=== PATIENT | female | born 1990 | race Asian ===

== ENCOUNTER 2022-10-14 16:45 | Outpatient (CLI) | payer BC ==
[2022-10-14 17:11] LABS: BASOPHILS % (AUTO) 0.4 %; EOSINOPHILS # (AUTO) 0.2 10^3/uL (0.0-0.7); EOSINOPHILS % (AUTO) 1.8 %; HCT - HEMATOCRIT 36.3 % (37.0-47.0); HGB - HEMOGLOBIN 12.2 g/dL (12.0-16.0); LYMPHOCYTES # (AUTO) 1.7 10^3/uL (1.5-3.5); LYMPHOCYTES % (AUTO) 15.4 %; MEAN CORPUSCULAR HEMOGLOBIN 28.1 pg (27.0-31.0); MEAN CORPUSCULAR HGB CONC 33.6 g/dL (32.0-36.0); MEAN CORPUSCULAR VOLUME 83.6 fL (81.0-99.0); MEAN PLATELET VOLUME 8.3 fL (7.9-10.8); MONOCYTES # (AUTO) 0.7 10^3/uL (0.0-1.0); MONOCYTES % (AUTO) 6.1 %; NEUTROPHILS # (AUTO) 8.6 10^3/uL (1.5-6.6); NEUTROPHILS % (AUTO) 75.9 %; PLT - PLATELET COUNT 346 10^3/uL (130-450); RED BLOOD COUNT 4.34 10^6/uL (4.20-5.40); RED CELL DISTRIBUTION WIDTH 13.4 % (12.0-15.0); WHITE BLOOD COUNT 11.3 x10^3/uL (4.8-10.8)
[2022-10-14 17:42] LABS: BILIRUBIN,URINE NEGATIVE (NEGATIVE); GLUCOSE, URINE (UA) NEGATIVE (NEGATIVE); KETONES,URINE (UA) NEGATIVE (NEGATIVE); LEUKOCYTE ESTERASE, URINE NEGATIVE (NEGATIVE); NITRITE,URINE NEGATIVE (NEGATIVE); OCCULT BLOOD,URINE NEGATIVE (NEGATIVE); PROTEIN,URINE NEGATIVE (NEGATIVE); UROBILINOGEN,URINE 0.2 (NORMAL) E.U./dL (NORMAL)
[2022-10-14 18:00] LABS: BACTERIA,URINE Rare /HPF (None Seen); CLARITY,URINE CLEAR (CLEAR); RBC,URINE 0-5 /HPF (0-5); SQUAMOUS EPITHELIAL CELL,UR RARE Squamous (<= Few); WBC,URINE 0-3 /HPF (0-5)
[2022-10-16 04:09] LABS: HBsAG SCREEN Negative (Negative); HCV AB Non Reactive (Non Reactive); HIV SCREEN 4TH GENERATION Non Reactive (Non Reactive)
[2022-10-16 07:10] LABS: RPR Non Reactive (Non Reactive); VARICELLA-ZOSTER AB IGG <135 index (Immune >165)
== END 2022-10-14 16:46 | disposition home or self-care (01) ==
LOC: LAB 16:45
PROVIDERS: ATTEND Nurse Practitioner
DX: Z34.90 Encounter for supervision of normal pregnancy, unspecified, unspecified trimester (principal)
CPT/HCPCS: 36415; 81001; 85025; 86592; 86762; 86787; 86803; 86850; 86900; 86901; 87086; 87340; 87389

== ENCOUNTER 2022-10-15 08:00 | Outpatient (CLI) | payer BC ==
[2022-10-15 20:03] LABS: CHLAMYDIA TRACHOMATIS DNA NEGATIVE (NEGATIVE); NEISSERIA GONORRHOEAE DNA NEGATIVE (NEGATIVE); TRICHOMONAS VAGINALIS DNA NEGATIVE (NEGATIVE)
== END 2022-10-15 23:59 | disposition home or self-care (01) ==
LOC: LAB.WC 08:00
PROVIDERS: ATTEND Obstetrics & Gynecology
DX: Z11.3 Encounter for screening for infections with a predominantly sexual mode of transmission (principal)
CPT/HCPCS: 87491; 87591; 87661

== ENCOUNTER 2022-10-15 22:19 | Outpatient (CLI) | payer BC ==
--- NOTE | 2022-10-16 12:26 | Ultrasound Report ---
PROCEDURE: OB First Trimester w/TV INDICATIONS: + PREG TEST OUTSIDE/PRIOR DATING DATA: Last menstrual period (LMP): 07/28/2022. LMP-based estimated date of delivery (DUGLAS): 05/04/2023. First dating scan (date and location): 10/15/2022. Estimated date of delivery (DUGLAS) from first dating scan: 04/30/2023. The below data below was generated using the working DUGLAS of 04/30/2023 TECHNIQUE: Real-time scanning was performed of the fetus and maternal pelvic organs, with image documentation. Endovaginal scanning was also performed to better visualize the fetus and maternal ovaries. COMPARISON: None FINDINGS: Embryo: Emory-rump length 5.15 cm corresponds with a 11 week 6 day gestation. Small subchorionic ble ed measures 1.2 x 1.4 x 1.7 cm Heart rate: 157 bpm Measurement variability in dating: +/- 4 weeks by LMP, +/- 7 days by mean sac diameter (use before 6 weeks gestation if crown-rump length not able to be measured), +/- 5 days by crown-rump length (6-12 weeks gestation). Maternal organs: Ovaries not identified due to overlying bowel gas and body habitus. IMPRESSION: Single live intrauterine consistent with a 11 week 6 day gestation. Small subchorionic blee d measures 1.4 x 1.7 cm Reviewed by: Elver Colunga MD on 10/16/2022 11:24 AM NOHEMY Approved by: Elver Colunga MD on 10/16/2022 11:24 AM NOHEMY Station ID: [id number]
== END 2022-10-15 22:20 | disposition home or self-care (01) ==
LOC: DI 22:19
PROVIDERS: ATTEND Nurse Practitioner
DX: O20.8 Other hemorrhage in early pregnancy (principal); Z3A.11 11 weeks gestation of pregnancy; Z11.3 Encounter for screening for infections with a predominantly sexual mode of transmission
CPT/HCPCS: 87491; 87591; 87661

== ENCOUNTER 2022-11-18 16:07 | Outpatient (CLI) | payer BC ==
[2022-11-20 20:07] LABS: AFP MOM 0.76 (.); AFP VALUE 32.8 ng/mL (.); GEST. AGE ON COLLECTION DATE 16.1 weeks (.); GESTAT. AGE METHOD EDD (.); INSULIN DEP DIABETES No (.); MATERNAL AGE AT EDD 35.2 yr (.); MULTIPLE GESTATION No (.); OPEN SPINA BIFIDA RISK 1 IN 10000 (.); RACE Other (.); RESULTS Report (.); TEST RESULTS *Screen Negative* (.); WEIGHT 111 lbs (.)
== END 2022-11-18 16:08 | disposition home or self-care (01) ==
LOC: LAB 16:07
PROVIDERS: ATTEND Obstetrics & Gynecology
DX: O09.511 Supervision of elderly primigravida, first trimester (principal)
CPT/HCPCS: 36415; 82105

== ENCOUNTER 2023-01-30 09:53 | Outpatient (CLI) | payer BC ==
[2023-01-30 18:50] LABS: HCT - HEMATOCRIT 34.2 % (37.0-47.0); HGB - HEMOGLOBIN 11.2 g/dL (12.0-16.0); MEAN CORPUSCULAR HEMOGLOBIN 28.4 pg (27.0-31.0); MEAN CORPUSCULAR HGB CONC 32.7 g/dL (32.0-36.0); MEAN CORPUSCULAR VOLUME 86.8 fL (81.0-99.0); MEAN PLATELET VOLUME 8.9 fL (7.9-10.8); RED BLOOD COUNT 3.94 10^6/uL (4.20-5.40); WHITE BLOOD COUNT 11.5 x10^3/uL (4.8-10.8)
== END 2023-01-30 09:54 | disposition home or self-care (01) ==
LOC: LAB.N 09:53
PROVIDERS: ATTEND Nurse Practitioner
DX: O09.511 Supervision of elderly primigravida, first trimester (principal)
CPT/HCPCS: 36415; 82950; 85027

== ENCOUNTER 2023-03-26 14:59 | Outpatient (CLI) | payer BC ==
--- NOTE | 2023-03-26 16:56 | Ultrasound Report ---
PROCEDURE: OB Biophysical Profile INDICATIONS: GESTATIOANL DIABETES OUTSIDE/PRIOR DATING DATA: Last menstrual period (LMP): 07/28/2022. LMP-based estimated date of delivery (DUGLAS): 05/04/2023. First dating scan (date and location): 10/15/2022. Estimated date of delivery (DUGLAS) from first dating scan: 04/30/2023. The below data below was generated using the clinical DUGLAS of 05/04/2023 TECHNIQUE: Real-time scanning was performed of the fetus, with image documentation and biometric jef surements. Biophysical profile was also obtained. COMPARISON: OB ultrasound 12/19/2022 FINDINGS: General: A single living intrauterine gestation is present. Presentation: Vertex Placenta: Placental position is anterior, without previa. Amniotic fluid index: 12.9 cm, within normal limits for gestational age. heart rate: 143 beats per minute. Maternal cervical canal: 3.7 cm long; normal length is 2.5 cm or more. biometrics: Estimated gestational age from initial scan: 34 weeks 3 days Biophysical profile: Tone: 2 points. Movement: 2 points. Respiration: 2 points. Largest pocket of fluid: 2 points. Umbilical artery Doppler: 2.6, 2.5, 2.6 IMPRESSION: Single live intrauterine with ultrasound gestational age of 34 weeks 5 days. BPP 8 out of 8 Reviewed by: Bonnie Becerra MD on 03/26/2023 4:54 PM PST Approved by: Bonnie Becerra MD on 03/26/2023 4:54 PM PST Station ID: [id number]
== END 2023-03-26 15:00 | disposition home or self-care (01) ==
LOC: DI 14:59
PROVIDERS: ATTEND Obstetrics & Gynecology
DX: O24.419 Gestational diabetes mellitus in pregnancy, unspecified control (principal); Z3A.34 34 weeks gestation of pregnancy

== ENCOUNTER 2023-04-02 15:05 | Outpatient (CLI) | payer BC ==
--- NOTE | 2023-04-02 17:26 | Ultrasound Report ---
PROCEDURE: OB Biophysical Profile INDICATIONS: GESTATIONAL DIABETES OUTSIDE/PRIOR DATING DATA: Last menstrual period (LMP): 07/28/2022. LMP-based estimated date of delivery (DUGLAS): 05/04/2023. First dating scan (date and location): 10/15/2022. Estimated date of delivery (DUGLAS) from first dating scan: 04/30/2023. TECHNIQUE: Real-time scanning was performed of the fetus, with image documentation. Biophysical pro file was also obtained. COMPARISON: 03/26/2023 FINDINGS: General: A single living intrauterine gestation is present. Presentation: Vertex spine to the left Placenta: Placental position is anterior, without previa. Amniotic fluid index: 11.5 cm, within normal limits for gestational age. heart rate: 145 beats per minute. Maternal cervical canal: 3.3 cm long; normal length is 2.5 cm or more. Estimated gestational age is 35 weeks and 3 days. Biophysical profile: Tone: 2 points. Movement: 2 points. Respiration: 2 points. Largest pocket of fluid: 2 points. Umbilical artery Doppler: Within normal limits measuring 1.9-2.1 SD ratio. IMPRESSION: Normal fluid, 8/8 BPP, SD ratio within normal limits. Reviewed by: Benedict Aguirre MD on 04/02/2023 5:25 PM PST Approved by: Benedict Aguirre MD on 04/02/2023 5:25 PM PST Station ID: [id number]
== END 2023-04-02 15:06 | disposition home or self-care (01) ==
LOC: DI 15:05
PROVIDERS: ATTEND Obstetrics & Gynecology
DX: O24.419 Gestational diabetes mellitus in pregnancy, unspecified control (principal); Z3A.35 35 weeks gestation of pregnancy

== ENCOUNTER 2023-04-07 08:00 | Outpatient (CLI) | payer BC | END 2023-04-07 23:59 | disposition home or self-care (01) | LOC: LAB.WC 08:00 | PROVIDERS: ATTEND Obstetrics & Gynecology | DX: Z36.85 Encounter for antenatal screening for Streptococcus B (principal) | CPT/HCPCS: 87797 ==

== ENCOUNTER 2023-04-09 13:53 | Outpatient (CLI) | payer BC ==
[2023-04-09 15:39] VITALS: BP 112/64
--- NOTE | 2023-04-09 17:04 | PROCEDURE REPORT ---
- HPI Diagnosis/Indication for NST: Gestational Diabetes Current EDU 05/04/23 Gestation 36 Weeks and 3 Days 1 Para 0 Vital Signs Temperature 98.4 F 04/09/23 14:30 Heart Rate 80 04/09/23 14:30 Respiratory Rate 16 04/09/23 14:30 Blood Pressure 112/64 04/09/23 14:30 Temperature 98.4 F 04/09/23 14:30 Heart Rate 80 04/09/23 14:30 Respiratory Rate 16 04/09/23 14:30 Blood Pressure 112/64 04/09/23 14:30 O2 Saturation If not protocol: Oxygen Flow, liters/minute - NST Procedure NST Procedure Start Date 04/09/23 Start Time 14:01 Stop Time 14:42 Vibroacoustic Stimulation Used No Patient States Movement Yes - Results and Plan Plan: Patient is a 33-year-old G1, P0 at 36 weeks 3 days gestation here for scheduled NST. NST Performed 04/09/2023 NST Read 04/09/2023 FHT: 145 bpm baseline, moderate variability, accelerations present, no decelerations. Reactive NST [place]: Quiescent Diagnosis 36 weeks gestation Gestational diabetes Continue with twice-weekly NST.
== END 2023-04-09 14:45 | disposition home or self-care (01) ==
LOC: WFO 13:53 → FBP 13:55 → WFO 14:45
PROVIDERS: ATTEND Obstetrics & Gynecology
DX: O24.419 Gestational diabetes mellitus in pregnancy, unspecified control (principal); Z3A.36 36 weeks gestation of pregnancy
CPT/HCPCS: 59025

== ENCOUNTER 2023-04-09 15:03 | Outpatient (CLI) | payer BC ==
--- NOTE | 2023-04-09 16:05 | Ultrasound Report ---
PROCEDURE: OB Biophysical Profile INDICATIONS: GESTATIOANL DIABETES OUTSIDE/PRIOR DATING DATA: Last menstrual period (LMP): 07/28/2022. LMP-based estimated date of delivery (DUGLAS): 05/04/2023. First dating scan (date and location): 10/15/2022. Estimated date of delivery (DUGLAS) from first dating scan: 04/30/2023. The below data below was generated using the clinical DUGLAS of 05/04/2023 TECHNIQUE: Real-time scanning was performed of the fetus, with image documentation and biometric jef surements. Biophysical profile was also obtained. Endovaginal scanning: Not performed COMPARISON: Ultrasound 04/02/2023 FINDINGS: General: A single living intrauterine gestation is present. Presentation: Vertex Placenta: Placental position is anterior, without previa. Amniotic fluid index: 10.9 cm, normal for gestational age. heart rate: 155 beats per minute. Maternal cervical canal: 2.8 cm long; normal length is 2.5 cm or more. Estimated gestational age from initial scan: 36 weeks, 3 days. Biophysical profile: Tone: 2 points. Movement: 2 points. Respiration: 2 points. Largest pocket of fluid: 2 points. Umbilical artery Doppler: 2.4, 2.6, 2.7 IMPRESSION: Single live intrauterine . Biophysical profile 8 out of 8. Normal amniotic fluid index. Umbi lical artery SD ratios ranging from 2.4, through 2.7. Reviewed by: Harpreet Rubio MD on 04/09/2023 4:04 PM PST Approved by: Harpreet Rubio MD on 04/09/2023 4:04 PM PST Station ID: [id number]
== END 2023-04-09 15:04 | disposition home or self-care (01) ==
LOC: DI 15:03
PROVIDERS: ATTEND Obstetrics & Gynecology
DX: O24.419 Gestational diabetes mellitus in pregnancy, unspecified control (principal); Z3A.00 Weeks of gestation of pregnancy not specified

== ENCOUNTER 2023-04-13 15:04 | Outpatient (CLI) | payer BC ==
[2023-04-13 15:25] VITALS: BP 117/70
--- NOTE | 2023-04-13 17:29 | Ultrasound Report ---
PROCEDURE: OB Biophysical Profile INDICATIONS: Decreased variability during NST OUTSIDE/PRIOR DATING DATA: Last menstrual period (LMP): 07/28/2022. LMP-based estimated date of delivery (DUGLAS): 05/04/2023. First dating scan (date and location): 10/15/2022. Estimated date of delivery (DUGLAS) from first dating scan: 04/30/2023. The below data below was generated using the clinical DUGLAS of 05/04/2023 TECHNIQUE: Real-time scanning was performed of the fetus, with image documentation and biometric jef surements. Biophysical profile was also obtained. COMPARISON: OB ultrasound 04/09/2023 FINDINGS: General: A single living intrauterine gestation is present. Presentation: Vertex Placenta: Placental position is anterior, without previa. Amniotic fluid index: 15 cm, within normal limits for gestational age. heart rate: 135 beats per minute. Maternal cervical canal: Closed biometrics: Gestational age by initial ultrasound/clinical datin weeks 3 days Biophysical profile: Tone: 2 points. Movement: 2 points. Respiration: 0 points. Largest pocket of fluid: 2 points. Umbilical artery Doppler: 1.9, 2.4, 2.7 Miscellaneous: Nuchal cord is noted. IMPRESSION: Single live intrauterine with gestational age 34 weeks 3 days. BPP 6 out of 8 Reviewed by: Bonnie Becerra MD on 04/13/2023 5:27 PM PST Approved by: Bonnie Becerra MD on 04/13/2023 5:27 PM PST Station ID: [id number]
--- NOTE | 2023-04-19 11:24 | PROCEDURE REPORT ---
- HPI Current EDU 05/04/23 Gestation 37 Weeks and 0 Days 1 Para 0 Vital Signs Temperature 97.9 F 04/13/23 15:16 Heart Rate 70 04/13/23 15:16 Respiratory Rate 18 04/13/23 15:16 Blood Pressure 117/70 04/13/23 15:16 Temperature 97.9 F 04/13/23 15:16 Heart Rate 70 04/13/23 15:16 Respiratory Rate 18 04/13/23 15:16 Blood Pressure 117/70 04/13/23 15:16 O2 Saturation If not protocol: Oxygen Flow, liters/minute - NST Procedure NST Procedure Start Date 04/13/23 Start Time 15:12 Stop Time 16:00 Vibroacoustic Stimulation Used No Patient States Movement Yes 130 mod alexus + A cells no D cells, reactive - Results and Plan Findings/Impression: reactive NST Plan: OK to D/C home for scheduled ANC precautions reviewed.
== END 2023-04-13 17:15 | disposition home or self-care (01) ==
LOC: WFO 15:04 → FBP 15:05 → WFO 17:15
PROVIDERS: ATTEND Obstetrics & Gynecology
DX: O24.419 Gestational diabetes mellitus in pregnancy, unspecified control (principal); Z3A.37 37 weeks gestation of pregnancy
CPT/HCPCS: 59025

== ENCOUNTER 2023-04-16 16:02 | Outpatient (CLI) | payer BC ==
[2023-04-16 16:24] VITALS: BP 117/76; O2SAT 97
--- NOTE | 2023-04-17 06:26 | PROCEDURE REPORT ---
- HPI Diagnosis/Indication for NST: Gestational Diabetes Current EDU 05/04/23 Gestation 37 Weeks and 3 Days 1 Para 0 Vital Signs Temperature 97.9 F 04/16/23 16:16 Heart Rate 93 04/16/23 16:16 Respiratory Rate 16 04/16/23 16:16 Blood Pressure 117/76 04/16/23 16:16 O2 Saturation 97 04/16/23 16:16 Temperature 97.9 F 04/16/23 18:15 Heart Rate 93 04/16/23 16:16 Respiratory Rate 16 04/16/23 16:16 Blood Pressure 117/76 04/16/23 16:16 O2 Saturation 97 04/16/23 16:16 If not protocol: Oxygen Flow, liters/minute - NST Procedure NST Procedure Start Date 04/16/23 Start Time 17:40 Stop Time 18:00 Vibroacoustic Stimulation Used No Patient States Movement Yes 135 mod alexus + A cells no D cells reactive BPP 6/8 total 12/24 - Results and Plan Findings/Impression: reactive and reassuring Plan: OK to D/C home with precautions strict [facility] precautions
== END 2023-04-16 18:55 | disposition home or self-care (01) ==
LOC: WFO 16:02 → FBP 16:04 → WFO 18:55
PROVIDERS: ATTEND Obstetrics & Gynecology
DX: O24.419 Gestational diabetes mellitus in pregnancy, unspecified control (principal); Z3A.37 37 weeks gestation of pregnancy
CPT/HCPCS: 59025

== ENCOUNTER 2023-04-16 17:15 | Outpatient (CLI) | payer BC ==
--- NOTE | 2023-04-18 17:27 | Ultrasound Report ---
PROCEDURE: OB F/U or Repeat INDICATIONS: GESTATIONAL DIABETES OUTSIDE/PRIOR DATING DATA: Last menstrual period (LMP): 07/28/2022. LMP-based estimated date of delivery (DUGLAS): 05/04/2023. First dating scan (date and location): 10/15/2022, Dr. Martinez. Estimated date of delivery (DUGLAS) from first dating scan: 04/30/2023. TECHNIQUE: Real-time scanning was performed of the fetus, with image documentation and biometric measurements. Endovaginal scanning: Not performed. COMPARISON: None. FINDINGS: General: A single living intrauterine gestation is present. Presentation: Vertex Placenta: Not imaged. Amniotic fluid index: 13.7 cm, 42% for gestational age. heart rate: 152 beats per minute. Maternal cervical canal: 4.0 cm long; normal length is 2.5 cm or more. biometrics: Biparietal diameter: 7.39 cm, 29 weeks, 5 days Head circumference: 33.2 cm, 37 weeks, 6 days Abdominal circumference: 31.8 cm, 35 weeks, 5 days Femur length: 7.1 cm, 36 weeks, 1 day Estimated gestational age from initial scan: 37 weeks, 3 days Composite gestational age from present scan: 34 weeks, 6 days Estimated weight and percentile: 2664.3 g, 12.6% Measurement variability in biometric dating: +/- 10 days from 12-20 weeks gestation, +/- 2 weeks from 20-30 weeks gestation, +/- 3 weeks at 30 weeks gestation or more. Biophysical profile: Tone: 2 points. Movement: 2 points. Respiration: 0 points. Largest pocket of fluid: 2 points. Umbilical artery Doppler: 2.6, 2.7, 2.1 IMPRESSION: 1. Single live intrauterine gestation with a composite gestational age of 34 weeks, 6 days. This is c oncordant with dates by initial scan (+/- 3 weeks at 30 gestation or more). 2. Estimated weight percentile of 12.6%. Developing IUGR cannot be excluded. 2. 6/8 biophysical profile. 3. Normal umbilical artery Doppler ratios. Reviewed by: Gloria Myers MD on 04/18/2023 5:26 PM PST Approved by: Gloria Myers MD on 04/18/2023 5:26 PM PST Station ID: [id number]
--- NOTE | 2023-04-18 17:29 | Ultrasound Report ---
PROCEDURE: OB F/U or Repeat INDICATIONS: GESTATIONAL DIABETES OUTSIDE/PRIOR DATING DATA: Last menstrual period (LMP): 07/28/2022. LMP-based estimated date of delivery (DUGLAS): 05/04/2023. First dating scan (date and location): 10/15/2022, Dr. Martinez. Estimated date of delivery (DUGLAS) from first dating scan: 04/30/2023. TECHNIQUE: Real-time scanning was performed of the fetus, with image documentation and biometric measurements. Endovaginal scanning: Not performed. COMPARISON: None. FINDINGS: General: A single living intrauterine gestation is present. Presentation: Vertex Placenta: Not imaged. Amniotic fluid index: 13.7 cm, 42% for gestational age. heart rate: 152 beats per minute. Maternal cervical canal: 4.0 cm long; normal length is 2.5 cm or more. biometrics: Biparietal diameter: 7.39 cm, 29 weeks, 5 days Head circumference: 33.2 cm, 37 weeks, 6 days Abdominal circumference: 31.8 cm, 35 weeks, 5 days Femur length: 7.1 cm, 36 weeks, 1 day Estimated gestational age from initial scan: 37 weeks, 3 days Composite gestational age from present scan: 34 weeks, 6 days Estimated weight and percentile: 2664.3 g, 12.6% Measurement variability in biometric dating: +/- 10 days from 12-20 weeks gestation, +/- 2 weeks from 20-30 weeks gestation, +/- 3 weeks at 30 weeks gestation or more. Other: Not applicable. IMPRESSION: 1. Single live intrauterine gestation with a composite gestational age of 34 weeks, 6 days which is c oncordant with dates by initial scan. 2. However, the biparietal diameter is less than 0.5 percentile range for patient age. Developing IUG R cannot be excluded and continued sonographic surveillance is recommended. Reviewed by: Gloria Myers MD on 04/18/2023 5:28 PM PST Approved by: Gloria Myers MD on 04/18/2023 5:28 PM PST Station ID: [id number]
== END 2023-04-16 23:59 | disposition home or self-care (01) ==
LOC: DI 17:15
PROVIDERS: ATTEND Obstetrics & Gynecology
DX: O24.419 Gestational diabetes mellitus in pregnancy, unspecified control (principal); Z3A.34 34 weeks gestation of pregnancy

== ENCOUNTER 2023-04-18 06:14 | Inpatient (IN) | payer BC ==
[2023-04-18] MEDS ORDERED: miSOPROStoL 200 MCG TABLET BC PRN (06:49)
[2023-04-18] MEDS ORDERED: TERBUTALINE 1 MG/ML VIAL SUBQ PRN (06:49)
[2023-04-18] MEDS ORDERED: NIFEdipine 10 MG CAPSULE PO PRN (06:49)
[2023-04-18] MEDS ORDERED: OXYTOCIN 10 UNIT/ML VIAL IM PRN (06:49)
[2023-04-18] MEDS ORDERED: TRANEXAMIC ACID IN NACL 1,000 MG/100 ML BAG IV PRN (06:49)
[2023-04-18] MEDS ORDERED: LABETALOL 20 MG/4 ML SYRINGE IVP PRN ×3 (06:49)
[2023-04-18] MEDS ORDERED: SODIUM CHLORIDE FLUSH 0.9% 10 ML SYRINGE IVP PRN (06:49)
[2023-04-18] MEDS ORDERED: miSOPROStoL 200 MCG TABLET PR PRN (06:49)
[2023-04-18] MEDS ORDERED: CARBOPROST TROMETHAMINE 250 MCG/ML AMP IM PRN (06:49)
[2023-04-18] MEDS ORDERED: OXYTOCIN/SODIUM CHLORIDE 500 ML IV PRN (06:49)
[2023-04-18] MEDS ORDERED: hydrALAZINE INJ 20 MG/ML VIAL IVP PRN ×2 (06:49)
[2023-04-18] MEDS ORDERED: fentaNYL 100 MCG/2 ML VIAL IVP PRN (06:49)
[2023-04-18] MEDS ORDERED: METHYLERGONOVINE 0.2 MG/ML VIAL IM PRN (06:49)
[2023-04-18] MEDS ORDERED: lidocaine 1% 20 ML MDV ID PRN (06:49)
[2023-04-18] MEDS ORDERED: SODIUM CHLORIDE FLUSH 0.9% 10 ML SYRINGE IVP SCH (07:00)
--- NOTE | 2023-04-18 07:02 | HISTORY & PHYSICAL EXAMINATION ---
Admit History - Visit Reason Visit Reason: Contractions - : 1 Care: positive: [facility] Risk/History: positive: Gestational diabetes Complications This : positive: Gestational diabetes Smoking Status: Never smoker - Mother's Labs Mother's Blood Type: positive: B Mother's RH: positive: Positive GBS: positive: Group B Step Negative Rubella Status: positive: Immune - Other Maternal History Other Maternal History: ANL: B+/abneg/RI/RPRNR/HepBneg/HIVneg/GCCTnegneg/GBSneg PMH: denies PSH: denies POB: G1 PGYN: no h/o abnormal pap no h/o STDs no h/o problems with ovaries or uterus pt with regular monthly periods, when not Meds: PNV, All: NKDA Soc: neg x3, lives with FOB Oliver Fam: unremarkable LMP: 07/28/22 DUGLAS by LMP: 05/04/2023 US: 09/23/22, 8 weeks 3 days, DUGLAS 05/02/23 Final DUGLAS: 05/04/23 by LMP consistent with 8 weeks ultrasound Problems: AMA -- cfDNA wnl, julio sono normal V-NI -- offer vaccine PP GDMA1 [X] all sugars well controlled, has changed to whole grain / brown rice, stopped soda 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 [X] discussed lifelong implications Pre- Weight:112 BMI: 21.24 Blood type: B+ Rh: + Antibody: NEGATIVE CBC: PLT: 346 HCT: 36.3 HGB: 12.2 RUB: 28.6 VZV: <135 HBsAg: Negative HepC: non reactive RPR/AB-EIA: Non Reactive HIV: non reactive PAP: never GC/CT: self-collected 10/14- Negative HSV: denies self and partner Genetic testing: MarturniTi 21- Negative XX; AFP negative Covid: Pfizer, 1set and 2 boosters Flu: 02/10/2023 FAS: Placenta:Anterior s/o previa Cord:3VC LETY:15.5cm EFW:393g 38th%ile 50gm OGCT: 169 3HR GTT: 74 223, 209, 191 TDAP:02/10 Breast Pump: 02/10 FLU: 02/10 Antibody screen: 3rd trimester H/H 11.5/34.2 PLT 298 GBS: Neg Delivery plan Contraception: Likely Mirena - HPI Vital Signs Temperature 97.7 F 04/18/23 06:34 Heart Rate 70 04/18/23 06:34 Respiratory Rate 18 04/18/23 06:34 Blood Pressure 129/75 04/18/23 06:34 O2 Saturation 99 04/18/23 06:34 Temperature 97.7 F 04/18/23 06:39 Heart Rate 78 04/18/23 06:39 Respiratory Rate 20 04/18/23 06:39 Blood Pressure 129/75 04/18/23 06:34 O2 Saturation 99 04/18/23 06:34 If not protocol: Oxygen Flow, liters/minute - NST Procedure NST Procedure Start Time 17:40 Stop Time 18:00 130 mod alexus + A cells no D cells, reactive Review of Systems - Other Findings Other Findings: Denies: F/C/N/V/CP/SOB Denies: dizziness, weakness, lightheadedness, difficulty with ambulation, palpitations Denies: PANDYA / visual changes Physical - Abdominal Exam Vital Signs: Temp Pulse Resp BP Pulse Ox O2 Flow Rate 97.7 F 78 20 129/75 99 04/18/23 06:39 04/18/23 06:39 04/18/23 06:39 04/18/23 06:34 04/18/23 06:34 Contraction Intensity: positive: Strong Uterine Resting Tone: positive: Soft - Monitoring Heart Rate Baseline: 135 Strip Review: positive: Category I - Presentation Presentation: positive: Vertex - Vaginal Exam Membranes: positive: Membranes intact Dilation (in cm): 4 Effacement (%): 100 Station: positive: -2 Cervical Position: positive: Posterior - Speculum Exam Speculum Exam Performed: positive: No Plan for Labor - Plan For Labor I expect patient to be DC'd or transferred within 96 hours.: Yes Plan for Labor: 33yo G1 @ 37w in active labor labor - recheck Q2-4h, - anticipate - augment if indicated FWB - cat 1 - cEFM - intermittent OK if cat 1 / reactive NSTs - OK for NSTQ4h as long as reassuring GDMA2 - FSQ2h
[2023-04-18] MEDS: LACTATED RINGERS 1,000 ML IV PRN ×3 (07:54→14:43)
[2023-04-18 07:56] LABS: BASOPHILS # (AUTO) 0.1 10^3/uL (0.0-0.1); BASOPHILS % (AUTO) 0.4 %; EOSINOPHILS % (AUTO) 0.2 %; HCT - HEMATOCRIT 38.4 % (37.0-47.0); HGB - HEMOGLOBIN 12.7 g/dL (12.0-16.0); LYMPHOCYTES # (AUTO) 1.4 10^3/uL (1.5-3.5); LYMPHOCYTES % (AUTO) 11.7 %; MEAN CORPUSCULAR HEMOGLOBIN 27.2 pg (27.0-31.0); MEAN CORPUSCULAR HGB CONC 33.1 g/dL (32.0-36.0); MEAN CORPUSCULAR VOLUME 82.2 fL (81.0-99.0); MEAN PLATELET VOLUME 9.7 fL (7.9-10.8); MONOCYTES # (AUTO) 0.6 10^3/uL (0.0-1.0); NEUTROPHILS # (AUTO) 10.1 10^3/uL (1.5-6.6); NEUTROPHILS % (AUTO) 82.1 %; PLT - PLATELET COUNT 281 10^3/uL (130-450); RED BLOOD COUNT 4.67 10^6/uL (4.20-5.40); RED CELL DISTRIBUTION WIDTH 14.4 % (12.0-15.0); WHITE BLOOD COUNT 12.3 x10^3/uL (4.8-10.8)
[2023-04-18 08:05] LABS: ALBUMIN 3.6 g/dL (3.2-5.5)
[2023-04-18] MEDS ORDERED: ROPIVACAINE 0.2% 200 MG/100 ML BAG EP ONE (08:06)
[2023-04-18] MEDS ORDERED: LIDOCAINE 2%-EPI 1:100000 20 ML MDV ONE (08:06)
[2023-04-18] MEDS ORDERED: LACTATED RINGERS 500 ML IV ONE (08:43)
[2023-04-18] MEDS ORDERED: ONDANSETRON 4 MG/2 ML VIAL IVP PRN ×2 (08:43→15:58)
[2023-04-18] MEDS ORDERED: ePHEDrine 50 MG/ML VIAL IVP PRN (08:43)
[2023-04-18] MEDS ORDERED: NALBUPHINE 10 MG/ML AMP IVP PRN (08:43)
[2023-04-18] MEDS ORDERED: diphenhydrAMINE INJ 50 MG/ML VIAL IVP PRN (08:43)
[2023-04-18] MEDS ORDERED: METOCLOPRAMIDE 10 MG/2 ML VIAL IVP PRN (08:43)
[2023-04-18] MEDS ORDERED: NALOXONE 0.4 MG/ML VIAL IVP PRN (08:43)
--- NOTE | 2023-04-18 08:47 | ANESTHESIA ---
Pre-Anesthesia VS, & Labs - Diagnosis active labor/pain - Procedure labor epidural Vital Signs: Temp Pulse Resp BP Pulse Ox O2 Flow Rate 36.5 C 78 20 129/75 99 04/18/23 06:39 04/18/23 06:39 04/18/23 06:39 04/18/23 06:34 04/18/23 06:34 Height: 5 ft Weight (kg): 55 kg Body Mass Index: 23.6 BMI Classification: Normal - NPO >8 hours - Is Patient ?: Yes - Lab Results Current Lab Results: Laboratory Tests 04/18/23 07:35: Albumin 3.6 04/18/23 07:35: WBC 12.3 H, RBC 4.67, Hgb 12.7, Hct 38.4, MCV 82.2, MCH 27.2, MCHC 33.1, RDW 14.4, Plt Count 281, MPV 9.7, Neut # (Auto) 10.1 H, Lymph # (Auto) 1.4 L, [place] # (Auto) 0.6, Eos # (Auto) 0.0, Baso # (Auto) 0.1, Absolute Nucleated RBC 0.00, Nucleated RBC % 0.0 04/18/23 07:35: TSH 4.84 Fish Bones: 04/18/23 07:35 04/18/23 07:35 Home Medications and Allergies Active Medications Carboprost Tromethamine (Carboprost Tromethamine 250 Mcg/Ml Amp) 250 mcg IM .ONCE PRN PRN Reason: Hemorrhage Diphenhydramine HCl (Diphenhydramine Inj 50 Mg/Ml Vial) 12.5 - 25 mg IVP Q6HR PRN PRN Reason: ITCHING Ephedrine Sulfate (Ephedrine 50 Mg/Ml Vial) 5 mg IVP Q5M PRN PRN Reason: For SBP<100;give until SBP>100 Fentanyl (Fentanyl 100 Mcg/2 Ml Vial) 50 mcg IVP Q1H PRN PRN Reason: Severe Pain (score 7-10) Hydralazine HCl (Hydralazine Inj 20 Mg/Ml Vial) 5 - 10 mg IVP Q20M PRN; Protocol PRN Reason: SBP> or= 160 OR DBP> or= 110 Hydralazine HCl (Hydralazine Inj 20 Mg/Ml Vial) 10 mg IVP .ONCE PRN; Protocol PRN Reason: SBP> or= 160 OR DBP> or= 110 Lactated Ringer's (Lr) 500 mls @ 999 mls/hr IV PRN PRN PRN Reason: NEEDED PER PROVIDER ORDERS Last Admin: 04/18/23 07:54 Dose: 999 mls/hr Oxytocin/Sodium Chloride (Pitocin/Sodium Chloride) 500 mls @ 999 mls/hr IV PRN PRN; Protocol PRN Reason: POST- HEMORR PREVENTION Tranexamic Acid (Tranexamic 1,000 Mg/100ml-Nacl) 1,000 mg in 100 mls @ 600 mls/hr IV Q30M PRN PRN Reason: EBL >1200mL and within 3hr Lactated Ringer's (Lr) 500 mls @ 999 mls/hr IV ONCE ONE Stop: 04/18/23 09:13 Labetalol HCl (Labetalol 20 Mg/4 Ml Syringe) 20 - 80 mg IVP Q10M PRN; Protocol PRN Reason: SBP> or= 160 OR DBP> or= 110 Labetalol HCl (Labetalol 20 Mg/4 Ml Syringe) 20 mg IVP .ONCE PRN; Protocol PRN Reason: SBP> or= 160 OR DBP> or= 110 Labetalol HCl (Labetalol 20 Mg/4 Ml Syringe) 20 - 40 mg IVP Q10M PRN; Protocol PRN Reason: SBP> or= 160 OR DBP> or= 110 Lidocaine HCl (Lidocaine 1% 20 Ml Mdv) 20 ml ID .ONCE PRN PRN Reason: PERINEAL REPAIR Stop: 04/21/23 06:49 Methylergonovine Maleate (Methylergonovine 0.2 Mg/Ml Vial) 0.2 mg IM .ONCE PRN PRN Reason: Hemorrhage Metoclopramide HCl (Metoclopramide 10 Mg/2 Ml Vial) 10 mg IVP Q6HR PRN PRN Reason: Nausea / Vomiting Misoprostol (Misoprostol 200 Mcg Tablet) 600 mcg BC .ONCE PRN PRN Reason: Hemorrhage Misoprostol (Misoprostol 200 Mcg Tablet) 800 mcg FL .ONCE PRN PRN Reason: Hemorrhage Nalbuphine HCl (Nalbuphine 10 Mg/Ml Amp) 2.5 - 5 mg IVP Q4H PRN PRN Reason: ITCHING Naloxone HCl (Naloxone 0.4 Mg/Ml Vial) 0.1 mg IVP Q2M PRN PRN Reason: RR<8 Nifedipine (Nifedipine 10 Mg Capsule) 10 - 20 mg PO Q20M PRN; Protocol PRN Reason: SBP> or= 160 OR DBP> or= 110 Ondansetron HCl (Ondansetron 4 Mg/2 Ml Vial) 4 mg IVP Q6HR PRN PRN Reason: Nausea / Vomiting Oxytocin (Oxytocin 10 Unit/Ml Vial) 10 unit IM .ONCE PRN PRN Reason: Step One if no IV access. Sodium Chloride (Sodium Chloride Flush 0.9% 10 Ml Syringe) 10 ml IVP PRN PRN PRN Reason: NEEDED PER PROVIDER ORDERS Sodium Chloride (Sodium Chloride Flush 0.9% 10 Ml Syringe) 10 ml IVP Q8H BERNADINE Terbutaline Sulfate (Terbutaline 1 Mg/Ml Vial) 0.25 mg SUBQ .ONCE PRN PRN Reason: Tachystole Anes History & Medical History - Anesthetic History Anesthesia Complications: reports: No previous complications Family history of Anesthesia Complications: Denies Family history of Malignant Hyperthermia: Denies - Medical History Cardiovascular: reports: None Pulmonary: reports: None Gastrointestinal: reports: None Urinary: reports: None Neuro: reports: None Musculoskeletal: reports: None Endocrine/Autoimmune: reports: Other (gestational DM) Smoking Status: Never smoker - Obstetrical History : 1 Events: reports: Gestational diabetes Complications: reports: Gestational diabetes Exam General: Alert, Oriented x3, Cooperative Dental: WNL Mouth Openin Fingerbreadth Neck Mobility: Normal Mallampati classification: I Thyromental Distance: 4-6 cm Respiratory: Lungs clear Cardiovascular: Regular rate Plan Anesthesia Type: Epidural Consent for Procedure(s) Verified and Reviewed: Yes Code Status: Attempt Resuscitation ASA classification: 2-Mild systemic disease Is this case an emergency?: No
[2023-04-18 09:51] LABS: CREATININE 0.7 mg/dL (0.6-1.3)
[2023-04-18 09:52] LABS: ALBUMIN/GLOBULIN RATIO 1.3 (1.0-2.2); BILIRUBIN,TOTAL 0.3 mg/dL (0.2-1.0); CALCIUM 9.2 mg/dL (8.5-10.3); POTASSIUM 3.9 mmol/L (3.5-4.5); TOTAL PROTEIN 6.4 g/dL (6.4-8.9)
[2023-04-18] MEDS ORDERED: ONDANSETRON ODT 4 MG TABLET TL PRN (15:58)
[2023-04-18] MEDS ORDERED: LACTATED RINGERS 1,000 ML IV PRN (15:58)
[2023-04-18] MEDS ORDERED: WITCH HAZEL/GLYCERIN 1 PAD TOP PRN (15:58)
--- NOTE | 2023-04-18 16:09 | DELIVERY NOTE ---
Delivery Note - Labor Labor: positive: Spontaneous - Delivery Method Delivery Method: positive: Spontaneous vaginal delivery - Presentation Presentation: positive: Vertex - Nuchal Cord Nuchal Cord: positive: Present - Anesthetic Anesthetic Type: - Amniotic Fluid Description Amniotic Fluid Description: positive: Clear - Vacuum Use Indication for Vacuum Use: positive: Suspicion of immediate or potential compromise Type of Vacuum Cup: positive: Cup: Soft Vacuum Extraction: positive: Successful Number of pop-offs: 0 - Episiotomy Type Episiotomy Type: positive: None - Laceration Laceration: positive: 3rd degree, Perineal - Suture Suture Type: positive: Vicryl Suture Size: positive: 2-0, 3-0 - Delivery Outcome Delivery Outcome: positive: Livebirth - [place]: positive: Placed in direct skin contact with mother, Suctioned, Stimulated, Warmed sex: positive: Female - Cord Cord: positive: 3 vessels - Placenta Placenta: positive: Intact, Spontaneous - Estimated Blood Loss Estimated Blood Loss (in cc): 400 - Post Delivery Events Post Delivery Events: positive: No post delivery events - Delivery Comments (Free Text/Narrative) Delivery Comments (Free Text/Narrative): On 18 Apr 2023 at 1451 patient delivered a viable female over intact perineum via vacuum assist under epidural analgesia. VAVD 2'2 NRFHT. Patient had recurrent late D cells that nadered below 80, so was verbally consented for vacuum. Vacuum applied at +2 station, at 1449, with coordinated pushing delivered at 1451, nuchal x1 delivered through, shoulders and body delivered without difficulty, L shoulder anterior. Baby crying spontaneously, placed on maternal abdomen, apgars 8/9. Perineum inspected, 3' vaginal laceration repaired stepwise - anal sphincter repaired with 3.0 vicryl rapide, end to end - partial 3' as the posterior portion of the sphincter is still intact. Two figure of 8 sutures used for repair. Perineal laceration then repaired with 2.0 vicryl, hemostatic after repair. And vaginal mucosa reapproximated with 3.0. All hemostatic after repair. Cord clamped and cut x2, placenta delivered spontaneously at 1511, inspected, intact with ? abruption ? and sent to pathology. 3VC. Trailing membraines also removed. Fundus firm with IV pitocin. EBL 400, all counts correct. Both mom and baby recovering well. Stage I: 7h32m Stage II: 39m Stage III: 20m
[2023-04-18] MEDS: IBUPROFEN 600 MG TABLET PO PRN (19:41)
[2023-04-18] MEDS: ACETAMINOPHEN 325 MG TABLET PO PRN (20:08)
[2023-04-19] MEDS: ACETAMINOPHEN 325 MG TABLET PO PRN ×3 (00:39→20:27)
[2023-04-19] MEDS: DOCUSATE SODIUM 100 MG CAPSULE PO SCH ×3 (00:39→23:04)
[2023-04-19] MEDS: IBUPROFEN 600 MG TABLET PO PRN ×4 (03:20→23:04)
--- NOTE | 2023-04-19 22:19 | PROVIDER PROGRESS NOTE ---
Subjective - Prog Note Date Prog Note Date: 04/19/23 Prog Note Time: 17:00 - Subjective Pt reports feeling: Improved Subjective: patient doing well post . bottom is sore but tolerable. some swelling. breast feeding going well. Objective - Vital Signs/Intake & Output Reviewed Vital Signs: Yes Vital Signs: Vital Signs x48h Temp Pulse Resp BP Pulse Ox 04/19/23 20:13 98.4 F 15 115/68 04/19/23 15:14 98.1 F 67 21 111/52 L 100 Intake & Output: Intake & Output 04/16/23 04/17/23 04/18/23 04/19/23 23:59 23:59 23:59 23:59 Intake Total 1250.000 Output Total 2195 Balance -945.000 - Objective General Appearance: positive: No acute distress Abdomen: positive: Non-tender Extremities: positive: Non-tender, No pedal edema - Lab Results Fish Bones: 04/18/23 07:35 04/18/23 07:35 Assessment/Plan - Problem List (1) Vaginal delivery Impression: recovering well. no concerns. does have 3rd degree lac. will continue stool softeners.
[2023-04-20] MEDS: ACETAMINOPHEN 325 MG TABLET PO PRN ×4 (00:26→13:41)
[2023-04-20] MEDS: IBUPROFEN 600 MG TABLET PO PRN ×2 (04:28→10:30)
[2023-04-20] MEDS: DOCUSATE SODIUM 100 MG CAPSULE PO SCH (09:11)
[2023-04-20 10:14] VITALS: BP 117/54; O2SAT 98
--- NOTE | 2023-04-20 13:28 | Discharge Plan ---
Discharge Plan Problem Reviewed?: Yes Disposition: Home, Self Care Condition: Good Prescriptions: Acetaminophen 650 mg PO Q4HR PRN #30 ea PRN Reason: Abdominal Pain Docusate Sodium 100Mg Capsule [Colace 100Mg Capsule] 100 - 200 mg PO BID PRN #60 cap PRN Reason: Constipation Ibuprofen [Motrin] 600 mg PO Q6H PRN #30 tab PRN Reason: Pain Diet: Regular Activity Restrictions: Additional Comments (pelvic rest 6-8 weeks.) Shower Restrictions: No Driving Restrictions: No No Smoking: If you smoke, Please STOP! Call for help. Follow-up with: James Gifford MD [Provider Admit Priv/Credential] -
--- NOTE | 2023-04-20 13:31 | DISCHARGE SUMMARY ---
Discharge Summary Admit Date: 04/18/23 Discharge Date: 04/20/23 Discharging Provider: Sudhir Code Status: Attempt Resuscitation - DIAGNOSES Admission Diagnoses: normal labor with vaginal delivery Discharge Diagnoses with Status of Each Condition: same with third degree perineal laceration. - HPI History of Present Illness: 37 4/7 weeks in active labor. received epidural for pain management. complicated by AMA, GDM diet controlled. Varicella not immune. in 2nd stage of labor baby had non reassuring tracing so Dr. Gifford placed a vacuum for delivery. this was successful. AFter delivery, 3rd degree perineal laceration was noted and repaired in usual fashion. PP course in unremarkable. received Varicella vaccine prior to discharge. baby girl weighed 5 lb 14 ounces which was AGA for her gestational age. - ALLERGIES Allergies/Adverse Reactions: Allergies Allergy/AdvReac Type Severity Reaction Status Date / Time No Known Drug Allergies Allergy Verified 04/19/23 00:35 - MEDICATIONS Home Medications: Ambulatory Orders Medication Instructions Recorded Confirmed Acetaminophen 650 mg PO Q4HR PRN #30 ea 04/20/23 Docusate Sodium 100Mg Capsule 100 - 200 mg PO BID PRN #60 cap 04/20/23 [Colace 100Mg Capsule] Ibuprofen [Motrin] 600 mg PO Q6H PRN #30 tab 04/20/23 - PHYSICAL EXAM AT DISCHARGE General Appearance: positive: No acute distress Respiratory: positive: No respiratory distress Extremities: positive: Non-tender - LABS Result Diagrams: 04/18/23 07:35 04/18/23 07:35 - FOLLOW UP [facility] - TIME SPENT Time Spent in Discharge (Minutes): 30
[2023-04-20] MEDS ORDERED: VARICELLA VACCINE LIVE/PF 1,350 UNIT/0.5 ML VIAL SUBQ ONE (13:56)
--- NOTE | 2023-04-20 16:03 | Labor Flowsheet ---
Labor Flowsheet Datetime Report Generated by CPN: 04/20/2023 16:03 Datetime: 04/20/2023 09:39 VITAL SIGNS NBP Sys/Nasima/Mean (mmHg): 117 : 54 : 65 Pulse: 77 Datetime: 04/20/2023 04:04 SpO2 (%): 98 Datetime: 04/18/2023 18:00 Pain Presence: None/Denies Datetime: 04/18/2023 17:45 Stage of : Recovery Bedside Blood Glucose: 0 Datetime: 04/18/2023 17:30 Respirations: 14 Temperature Route: Oral PAIN Pain Scale: 0 Datetime: 04/18/2023 17:00 Temperature (C): 37.0 Datetime: 04/18/2023 16:44 COMMUNICATION LaborFlag: Labor Datetime: 04/18/2023 15:34 Patient Care Comments: Pt straight cathed Datetime: 04/18/2023 14:49 Vacuum: On Stage 2 Comments: Pull x1 no pop offs Datetime: 04/18/2023 14:45 Pushing Progress: Descent with Pushing Datetime: 04/18/2023 14:30 STAGE 2 Pushing: Coached on Pushing Pushing Position: Pushing with Contractions Datetime: 04/18/2023 14:23 TEACHING Teaching Comments: Dr.Ирина educated pt on Vacuum Datetime: 04/18/2023 14:20 I/O Interventions: [place] Discontinued Datetime: 04/18/2023 14:12 VAGINAL EXAM Dilatation (cm): 10.0 Effacement (%): 100 Station: 1 Exam by: Dr.Ирина Datetime: 04/18/2023 13:39 PATIENT CARE IV/Blood Work: IV Bolus Started Datetime: 04/18/2023 13:37 Patient Position/Activity: Left Lateral Datetime: 04/18/2023 13:20 Vaginal Bleeding: Small Cervix, Consistency: Soft Cervix, Position: Anterior Datetime: 04/18/2023 13:02 Pain Assessment Comments: pt declines feeling pressure Datetime: 04/18/2023 13:00 UTERINE ACTIVITY Monitor Mode: External Frequency (min): 2.5-5 Quality: Moderate Duration (sec): 70-120 Pattern: Normal: <= 5 Contractions in 10 Minutes Resting Tone (Palpate): Relaxed ASSESSMENT A Monitor Mode: Telemetry FHR Baseline Rate : 135 Variability: Moderate 6-25 bpm Accelerations: 15X15 Decelerations: None Category: Category I Datetime: 04/18/2023 12:12 Monitor Interventions for FHR: Ultrasound Adjusted Datetime: 04/18/2023 12:06 Hygiene: Katiana Care; Underpad Changed Datetime: 04/18/2023 12:00 Membrane Status: Ruptured Membranes Rupture Method: Spontaneous Amniotic Fluid Color: Clear Amniotic Fluid Amount: Moderate Amniotic Fluid Odor: Normal Nitrazine: Positive Datetime: 04/18/2023 10:53 Monitor Interventions for UA: [place] Adjusted Datetime: 04/18/2023 10:30 FHR Baseline Changes: No Baseline Change Datetime: 04/18/2023 09:30 Oxygen Method: Room Air Datetime: 04/18/2023 08:41 Anesthesia Comments: E. Bailey, CORE STACKER leaves bedside Datetime: 04/18/2023 08:35 Epidural Procedure Other: Pump Started Datetime: 04/18/2023 08:30 Epidural Procedure: Loading Dose Datetime: 04/18/2023 08:17 ANESTHESIA Anesthesia Plans: Epidural Epidural Positioning: Sitting Datetime: 04/18/2023 08:10 PROCEDURE TIME OUT Procedure Verify: Correct Patient Identity; Correct Side and Site are Marked; Accurate Procedure Co nsent Form; Agreement on Procedure to be Done; Correct Patient Position Datetime: 04/18/2023 08:02 Pain Type: Contraction Pain Location: Abdomen Pain Coping: Breathing Through Contractions Comfort Measures: Breathing/Relaxation Datetime: 04/13/2023 15:44 Station Vacuum/Forceps Applied: +2
== END 2023-04-20 15:45 | disposition home or self-care (01) | DRG 768 ==
LOC: WFO 06:14 → FBP 06:16 → WFO 06:48 → FBP 06:49
PROVIDERS: ADMIT Obstetrics & Gynecology; ATTEND Obstetrics & Gynecology
PROC: 10D07Z6 Extraction of Products of Conception, Vacuum, Via Natural or Artificial Opening (ICD-10-PCS; principal; 2023-04-18)
PROC: 0DQR0ZZ Repair Anal Sphincter, Open Approach (ICD-10-PCS; 2023-04-18)
DX: O70.20 Third degree perineal laceration during delivery, unspecified (principal); Z37.0 Single live birth; Z3A.37 37 weeks gestation of pregnancy; O24.420 Gestational diabetes mellitus in childbirth, diet controlled
CPT/HCPCS: 36415; 59409; 80053; 84443; 85025; 86850; 86900; 86901; 90716; A9270; J7120; 99215